=== PATIENT | male | born 1995 | race Caucasian/White ===

== ENCOUNTER 2021-12-29 12:48 | Outpatient (CLI) | payer BC ==
--- NOTE | 2021-12-29 14:06 | XRAY Report ---
PROCEDURE: Lumbar Spine 2 View INDICATIONS: LUMBAR PAIN,JOINT PAIN RIGHT HAND TECHNIQUE: 2 views of the lumbar spine were acquired. COMPARISON: None. FINDINGS: Bones: 5 [id number] vertebrae are present. There is normal bony alignment. No vertebral body compression fractures. No suspicious bony lesions. Mild disc height loss with facet arthrosis at L5 -S1. The sacroiliac joints are maintained. No widening of the pubic symphysis. Soft tissues: Overlying bowel gas pattern is normal. No suspicious soft tissue calcifications. IMPRESSION: Facet arthrosis at L5-S1 Reviewed by: Eliel Hoover MD on 12/29/2021 2:05 PM PDT Approved by: Eliel Hoover MD on 12/29/2021 2:05 PM PDT Station ID: [id number]
--- NOTE | 2021-12-29 17:13 | XRAY Report ---
PROCEDURE: Hand 3 View RT INDICATIONS: LUMBAR PAIN,JOINT PAIN RIGHT HAND TECHNIQUE: 3 views of the hand(s) acquired. COMPARISON: None. FINDINGS: Bones: No fractures or dislocations. No suspicious bony lesions. Possible old fifth metacarpal neck fracture. Soft tissues: No suspicious soft tissue calcifications. IMPRESSION: No acute osseous abnormality. Possible old fifth metacarpal neck fracture. If pain persists, a follow -up examination is recommended in 7-10 days. Reviewed by: Torie Denise MD on 12/29/2021 4:12 PM [facility]DT Approved by: Torie Denise MD on 12/29/2021 4:12 PM [facility]DT Station ID: [id number]
== END 2021-12-29 12:49 | disposition home or self-care (01) ==
LOC: DI 12:48
PROVIDERS: ATTEND Registered Nurse
DX: M47.817 Spondylosis without myelopathy or radiculopathy, lumbosacral region (principal); M51.37 Other intervertebral disc degeneration, lumbosacral region; M25.541 Pain in joints of right hand

== ENCOUNTER 2022-04-24 08:00 | Outpatient (CLI) | payer BC, MEDICAID ==
[2022-04-24 12:07] LABS: BASOPHILS % (AUTO) 0.5 %; EOSINOPHILS # (AUTO) 0.1 10^3/uL (0.0-0.7); EOSINOPHILS % (AUTO) 1.2 %; HCT - HEMATOCRIT 42.2 % (42.0-52.0); HGB - HEMOGLOBIN 14.8 g/dL (14.0-18.0); LYMPHOCYTES # (AUTO) 1.3 10^3/uL (1.5-3.5); MEAN CORPUSCULAR HEMOGLOBIN 32.2 pg (27.0-31.0); MEAN CORPUSCULAR HGB CONC 35.1 g/dL (32.0-36.0); MEAN CORPUSCULAR VOLUME 91.7 fL (80.0-94.0); MEAN PLATELET VOLUME 10.5 fL (7.4-11.4); MONOCYTES # (AUTO) 0.4 10^3/uL (0.0-1.0); MONOCYTES % (AUTO) 10.4 %; NEUTROPHILS # (AUTO) 2.4 10^3/uL (1.5-6.6); NEUTROPHILS % (AUTO) 57.7 %; PLT - PLATELET COUNT 261 10^3/uL (130-450); RED CELL DISTRIBUTION WIDTH 11.9 % (12.0-15.0); WHITE BLOOD COUNT 4.2 x10^3/uL (4.8-10.8)
[2022-04-24 12:22] LABS: ALBUMIN 4.8 g/dL (3.2-5.5); ALBUMIN/GLOBULIN RATIO 1.5 (1.0-2.2); BILIRUBIN,TOTAL 1.3 mg/dL (0.2-1.0); CALCIUM 9.6 mg/dL (8.5-10.3); CREATININE 0.9 mg/dL (0.6-1.2); POTASSIUM 3.7 mmol/L (3.5-5.0); TOTAL PROTEIN 7.9 g/dL (6.7-8.2)
== END 2022-04-24 23:59 | disposition home or self-care (01) ==
LOC: LAB.N 08:00
PROVIDERS: ATTEND Family Medicine
DX: R10.32 Left lower quadrant pain (principal)
CPT/HCPCS: 36415; 80053; 85025

== ENCOUNTER 2022-06-02 08:11 | Outpatient (CLI) | payer BC ==
[2022-06-02] MEDS ORDERED: iohexoL-300 100 ML VIAL ONE (08:29)
[2022-06-02] MEDS ORDERED: DIATRIZOATE MEGLU/DIATRIZO SOD 30 ML BOTTLE PO ONE ×2 (08:29→09:24)
[2022-06-02] MEDS ORDERED: iohexoL-300 100 ML VIAL IVP ONE (09:25)
--- NOTE | 2022-06-02 15:39 | CT Report ---
PROCEDURE: Abdomen/Pelvis W INDICATIONS: ABD PAIN CONTRAST: IV CONTRAST: Isovue 300 ml: 100 PO CONTRAST: *NO PO CONTRAST TECHNIQUE: After the administration of contrast, 5 mm thick sections acquired from the diaphragms to the sym physis. 5 mm thick coronal and sagittal reformats were acquired. For radiation dose reduction, the following was used: automated exposure control, adjustment of mA and/or kV according to patient size . COMPARISON: None. FINDINGS: Image quality: Excellent. ABDOMEN: Lung bases: Lung bases are clear. Heart size is normal. Solid organs: Liver and spleen are normal in size and enhancement. Gallbladder is normal Biliary s ystem is non dilated. Pancreas enhances normally. No adrenal nodules. Kidneys demonstrate normal s ize and enhancement, without hydronephrosis. Peritoneum and bowel: Bowel loops demonstrate normal wall thickness and caliber. There is increased stool in the rectum and sigmoid colon measuring up to 7.0 x 5.5 cm in the rectum. There is no divert iculosis or diverticulitis. The appendix is normal. No free fluid or air. Nodes and vessels: No retroperitoneal or mesenteric adenopathy by size criteria. Aorta and inferior vena cava are normal in size. Miscellaneous: No ventral hernias. PELVIS: Genitourinary: Bladder wall thickness is normal. Miscellaneous: No inguinal hernias or adenopathy. Bones: No suspicious bony lesions. No vertebral body compression fractures. IMPRESSION: 1. No acute abdominal or pelvic abnormality. 2. Increased stool in the rectum and sigmoid colon with fecal impaction. Reviewed by: Ever Isabel on 06/02/2022 3:38 PM PDT Approved by: Ever Isabel on 06/02/2022 3:38 PM PDT Station ID: [id number]
== END 2022-06-02 08:12 | disposition home or self-care (01) ==
LOC: DI 08:11
PROVIDERS: ATTEND Family Medicine
DX: R10.32 Left lower quadrant pain (principal); K56.41 Fecal impaction
CPT/HCPCS: 74177; Q9963; Q9967